=== PATIENT | male | born 1945 | race Hispanic/Latino ===

== ENCOUNTER → 2017-08-29 | Outpatient (CLI) | payer OTHER, MEDICARE ==
[~2017-08-29] MED LIST: DIATRIZOATE MEGL/DIATRIZOA SOD 30 ML BTL PO ONE; GABAPENTIN300 MG PO; HYDROCHLOROTHIA25 MG PO; IOPAMIDOL 370 MG/ML 200 ML INFUS..BTL INJ ONE; ISOSORBIDE MONO30 M1 PO; LYRICA75 MG PO; NEXIUM40 MG PO; NORVASC10 MG PO; SODIUM CHLORIDE 0.9% 50ML 50 ML ONE; TRAMADOL-ACETAMI1 EA PO; VASOTEC10 MG PO; ZOLPIDEM TARTRA10 MG PO
[2017-08-29 11:27] LABS: BLOOD UREA NITROGEN 12 mg/dL (7-26); BUN/CREATININE RATIO 11 (6-25); CREATININE, SERUM 1.06 mg/dL (0.72-1.25); EST GLOMERULAR FILTRATION RATE > 60 ML/MIN (60-)
--- NOTE | 2017-08-29 12:40 | Diagnostic Imaging Report ---
PROCEDURE:CT PELVIS WITH CONTRAST COMPARISON:None. INDICATIONS:Left Groin Pain--Hernia repair TECHNIQUE:Helical axial CT images from the level of L2 through the lesser trochanters were obtained after the intravenous administration of 100 cc Isovue 370 and the oral administration of Gastrografin. Coronal and sagittal reformatted images were available for review. FINDINGS: PELVIC NODES:No pelvic sidewall or lower retroperitoneal lymphadenopathy. PELVIC ORGANS:The urinary bladder is incompletely distended but otherwise unremarkable. Coarse prostatic calcifications. Innumerable sigmoid diverticula without wall thickening or adjacent inflammatory change. Visualized segments of the large bowel are otherwise unremarkable. The appendix is normal. No dilatation of the visualized small bowel loops. Tortuosity of the iliac arterial systems with associated atherosclerotic calcification. No aneurysmal dilatation. Postsurgical changes of the left inguinal region related to hernia repair without drainable fluid collection. The left inferior epigastric artery is intact. BONES:No osseous destructive lesions. Advanced bilateral facet arthropathy at L5-S1. Mild degenerative joint disease of the hips. Sacroiliac joints are well-maintained. CONCLUSION: Post surgical changes related to left inguinal hernia repair, without drainable fluid collection, residual hernia, bowel obstruction, or vascular complication. Atherosclerotic vascular disease. Sigmoid diverticulosis without findings of diverticulitis. Dictated by: Randal Caro M.D. on 08/29/2017 at 12:40 Electronically approved by: Randal Caro M.D. on 08/29/2017 at 12:40
== END ==
LOC: CT 10:42
PROVIDERS: ATTEND Surgery
DX: R10.32 Left lower quadrant pain (principal)
CPT/HCPCS: 36415; 72193; 82565; 84520; Q9967